=== PATIENT | female | born 1995 | race Caucasian/White ===

== ENCOUNTER 2018-10-14 05:30 | Inpatient (IN) | payer OTHER ==
[~2018-10-14] VITALS: Ht 162.6 cm; Wt 99.8 kg
[2018-10-14 06:04] VITALS: Ht 162.6 cm; Wt 99.8 kg
[2018-10-14] MEDS ORDERED: MISOPROSTOL 200 MCG TAB PR PRN ×2 (06:30→09:00)
[2018-10-14] MEDS ORDERED: CARBOPROST 250 MCG INJ IM PRN ×2 (06:30→09:00)
[2018-10-14] MEDS ORDERED: OXYTOCIN 30 UNITS/LR 500 ML IV PRN ×2 (06:30→09:00)
[2018-10-14] MEDS ORDERED: OXYTOCIN 30 UNITS/LR 500 ML IV SCH ×2 (06:30→08:47)
[2018-10-14] MEDS: LACTATED RINGER'S 1,000 ML IV SCH ×3 (06:30→23:30)
[2018-10-14] MEDS ORDERED: METHYLERGONOVINE 0.2 MG INJ IM PRN ×2 (06:30→09:00)
[2018-10-14] MEDS ORDERED: OXYTOCIN 30 UNITS/LR 500 ML BAG IV ONE (07:00)
[2018-10-14] MEDS ORDERED: CEFAZOLIN 2 GM/50 ML (PMX) 50 ML IVPB ONE (07:00)
--- NOTE | 2018-10-14 07:10 | PREAC ---
Date/Time of Note Date/Time of Note DATE: 10/14/18 TIME: 07:09 Anesthesia Eval and Record Evaluation Time Pre-Procedure Interview DATE: 10/14/18 TIME: 07:09 Age 23 Sex female NPO: 8 hrs Preoperative diagnosis Primary Planned procedure Past Medical History Past Medical History: Includes Heme: Anemia : : (3), Para: (2), Gestational age: (39), Other (Hx Chlamidia) Surgery & Anesthesia Issues No known issue Meds Anticoagulation: No Beta Nitza within 24 hr: No Reason Beta Nitza not given: Pt. not on B-Nitza Current Medications Lactated Ringer's 1,000 ml @ 125 mls/hr Q8H IV Last administered on 10/14/18at 06:30; Admin Dose 125 MLS/HR; Start 10/14/18 at 06:06 Oxytocin/Lactated Ringer's 500 ml @ 125 mls/hr POST IV ; Start 10/14/18 at 06:30 Oxytocin/Lactated Ringer's 500 ml @ 0 mls/hr ONCE PRN IV .VAGINAL BLEEDING; Start 10/14/18 at 06:30 Methylergonovine Maleate (Methergine) 0.2 mg ONCE PRN IM .VAGINAL BLEEDING; Start 10/14/18 at 06:30 Carboprost Tromethamine (Hemabate) 250 mcg ONCE PRN IM .VAGINAL BLEEDING; Start 10/14/18 at 06:30 Misoprostol (Cytotec) 1,000 mcg ONCE PRN MD .VAGINAL BLEEDING; Start 10/14/18 at 06:30 Cefazolin Sodium/ Dextrose 50 ml @ 100 mls/hr ONCE ONCE IVPB ; Start 10/14/18 at 07:00; Stop 10/14/18 at 07:29 Meds reviewed: Yes Allergies Coded Allergies: No Known Allergy (Unverified , 10/14/18) Allergies Reviewed: Yes Labs/Studies Labs Reviewed: Reviewed by anesthesiologist Result Diagram: 10/14/18 0600 Laboratory Tests 10/14/18 06:00 Blood Bank Test 10/14/18 06:00 Rh Immune Globulin Candidate NO test: Positive Studies: ECG (n/a), CXR (n/a) Pre-procedure Exam Airway: Adequate mouth opening, Adequate thyromental dist Mallampati: Mallampati II Teeth: Normal Lung: Normal Heart: Normal ASA Physical Status ASA physical status: 2 Emergency: None Planned Anesthetic Neuraxial: Spinal Planned Pain Management Sub-arachniod narcotics, Parenteral pain med Pre-operative Attestations Prior to commencing anesthesia and surgery, the patient was re-evaluated, there was verification of: *The patient's identity *The results of appropriate recent lab work and preoperative vital signs *The above evaluation not changing prior to induction *Anesthetic plan, risk benefits, alternative and complications discussed with patient/family; questions answered; patient/family understands, accepts and wishes to proceed. KANDY GUAMAN MD Oct 14, 2018 07:10
[2018-10-14] MEDS ORDERED: CITRIC ACID/NA CITRATE 30 ML CUP PO ONE (07:30)
[2018-10-14] MEDS ORDERED: ONDANSETRON 4 MG INJ IV ONE (07:30)
--- NOTE | 2018-10-14 07:37 | PREOPHP ---
DATE OF ADMISSION: 10/14/2018 HISTORY OF PRESENT ILLNESS: Ms. Roseanna Marcos is a 23-year-old 3, para 2, EDC 10/19/2018 in trauterine at 39 weeks gestational age, admitted today for elective primary . She has a history of chlamydia infection and re-exposure and was treated. However, she desires an elect christie because she desires to decrease her chances of the fetus stephanie chlamydia infectio n. She currently denies any contractions, vaginal bleeding, or discharge. Her care was a l ate entry approximately 18 weeks at [facility]. PAST MEDICAL HISTORY: None. MEDICATIONS: vitamins. PAST SURGICAL HISTORY: None. OBSTETRICAL HISTORY: x2 vaginal delivery, one of which was at approximately 27 week's gestat ional age. GYNECOLOGIC HISTORY: 11, regular 3 to 4 days. Sexually active with 1 partner. Positive for chlamyd ia and this current with recurrent exposure. The patient reports that partner is aware and will get treated for chlamydia. FAMILY HISTORY: None. REVIEW OF SYSTEMS: All within normal except history of present illness. PHYSICAL EXAMINATION: HEENT: Within normal. LUNGS: CTA bilateral. CARDIOVASCULAR: S1, S2, regular rhythm. ABDOMEN: Gravid, nontender. Negative CVA bilateral. EXTREMITIES: Negative edema. No calf tenderness. PELVIC: Vaginal exam deferred. heart tracing category 1. [place]: no contractions. IMPRESSION: A 23-year-old 3, para 2, intrauterine at 39 weeks gestational age with a history of chlamydia/re-exposure, desires elective delivery. PLAN: Consent for a primary . Risks, benefits and alternatives explained. All questions w ere answered. Dictated By: TABITHA ALVAREZ/ART Conf#: [id number] DID#: [id number]
[2018-10-14] MEDS ORDERED: PHENYLephrine (100 MCG/ML) 10ML SYG ONE (07:48)
[2018-10-14] MEDS ORDERED: morphine SULFATE/PF (10 MG/10 ML) INJ ONE (07:49)
[2018-10-14] MEDS ORDERED: OXYTOCIN 10 UNIT INJ ONE (07:49)
[2018-10-14] MEDS ORDERED: METOCLOPRAMIDE 10 MG INJ ONE (08:04)
[2018-10-14] MEDS ORDERED: DEXAMETHASONE 4 MG/ML 1 ML INJ ONE (08:04)
[2018-10-14] MEDS ORDERED: KETOROLAC 30 MG INJ ONE (08:04)
[2018-10-14] MEDS ORDERED: DIPHENHYDRAMINE 50 MG INJ IV PRN ×2 (08:30)
[2018-10-14] MEDS ORDERED: NALBUPHINE HCL (10 MG/1 ML) INJ IV PRN (08:30)
[2018-10-14] MEDS ORDERED: HYDROmorphONE 0.5 MG/0.5 ML SYG IV PRN ×2 (08:30)
[2018-10-14] MEDS ORDERED: OXYCODONE/ACETAMINOPHEN (5/325) TAB PO PRN ×3 (08:30→09:00)
[2018-10-14] MEDS ORDERED: EPHEDrine SULFATE 50 MG/5 ML SYG IV PRN (08:30)
[2018-10-14] MEDS ORDERED: HYDROCODONE/APAP (5/325) TAB PO PRN (08:30)
[2018-10-14] MEDS ORDERED: HYDROmorphONE 1 MG/5 ML IV SYRINGE IV PRN ×2 (08:30)
[2018-10-14] MEDS ORDERED: MEPERIDINE 25 MG INJ IV PRN (08:30)
[2018-10-14] MEDS ORDERED: ACETAMINOPHEN 500 MG TAB PO PRN (08:30)
[2018-10-14] MEDS ORDERED: FENTAnyl 50 MCG/ML VIAL IV PRN ×2 (08:30)
[2018-10-14] MEDS ORDERED: METOCLOPRAMIDE 10 MG INJ IV PRN (08:30)
[2018-10-14] MEDS ORDERED: NALOXONE (0.4 MG/ML) INJ IV PRN (08:30)
[2018-10-14] MEDS ORDERED: morphine 2 MG INJ IV PRN ×2 (08:30)
[2018-10-14] MEDS ORDERED: ONDANSETRON 4 MG INJ IV PRN ×2 (08:30)
--- NOTE | 2018-10-14 08:47 | OPPN ---
Date/Time of Note Date/Time of Note DATE: 10/14/18 TIME: 08:44 Operative Report Planned Procedure Procedure date Oct 14, 2018 Procedure(s) primary low transverse CD Performed by see signature line Cremator: ALEJANDRA CLAYTON M.D. 2nd Cremator none Anesthesiologist: KANDY GUAMAN MD Pre-procedure diagnosis 23-year-old 3, para 2, intrauterine at 39 weeks gestational age with a history of chlamydia/re-exposure, desires elective delivery; maternal request [id number] Anesthesia Type: [id number] spinal Post-Procedure Post-procedure diagnosis same Findings a viable male 89 weigth 3920 grams true umbilical knot normal uterus tubes and ovaries Estimated Blood Loss: 600 - 700 mls (700) Specimen(s) none Grafts/Implant(s) none Complication(s) none TABITHA CORDOVA MD Oct 14, 2018 08:47
--- NOTE | 2018-10-14 08:49 | PAC ---
Date/Time of Note Date/Time of Note DATE: 10/14/18 TIME: 08:48 Post-Anesthesia Notes Post-Anesthesia Note Last documented vital signs T: 98.0 Activity: WNL Respiratory function: WNL Cardiovascular function: WNL Mental status: Baseline Pain reasonably controlled: Yes Hydration appropriate: Yes Nausea/Vomiting absent: Yes KANDY GUAMAN MD Oct 14, 2018 08:48
[2018-10-14] MEDS ORDERED: CEFAZOLIN 2 GM/50 ML (PMX) 50 ML IVPB SCH (09:00)
[2018-10-14] MEDS ORDERED: NACL 0.9% 3 ML SYG IV SCH (09:00)
[2018-10-14] MEDS ORDERED: LANOLIN HPA 1 PKT TOP PRN (09:00)
[2018-10-14] MEDS ORDERED: HETASTARCH 6% NACL 500 ML ONE (09:07)
[2018-10-14] MEDS ORDERED: HETASTARCH 6% NACL 500 ML BAG IV* ONE (09:30)
[2018-10-14 13:45] VITALS: BP 99/58; PULSE 76; RESP 17
[2018-10-14] MEDS ORDERED: IBUPROFEN 800 MG TAB PO SCH (14:00)
[2018-10-14] MEDS: CEFAZOLIN 2 GM/50 ML (PMX) 50 ML IVPB SCH ×2 (16:13→23:30)
[2018-10-14 16:30] VITALS: BP 104/57; PULSE 88; RESP 16
[2018-10-14] MEDS: KETOROLAC 30 MG INJ IV PRN (17:13)
[2018-10-14 20:05] VITALS: BP 94/51; PULSE 71; RESP 19
[2018-10-15 03:50] VITALS: BP 96/55; PULSE 76; RESP 20
[2018-10-15] MEDS: KETOROLAC 30 MG INJ IV PRN (05:31)
[2018-10-15] MEDS: LACTATED RINGER'S 1,000 ML IV SCH ×2 (06:06→14:06)
[2018-10-15] MEDS: IBUPROFEN 800 MG TAB PO SCH ×3 (07:50→22:10)
[2018-10-15] MEDS: CEFAZOLIN 2 GM/50 ML (PMX) 50 ML IVPB SCH (08:08)
[2018-10-15 08:30] VITALS: BP 90/59; PULSE 90; RESP 19
--- NOTE | 2018-10-15 09:11 | OPR ---
DATE OF OPERATION: 10/15/2018 PREOPERATIVE DIAGNOSES: A 23-year-old 3, para 2, intrauterine at 39 weeks gestati onal age with a history of chlamydia/reexposure, desires elective delivery, maternal request . POSTOPERATIVE DIAGNOSES: A 23-year-old 3, para 2, intrauterine at 39 weeks gestati onal age with a history of chlamydia/reexposure, desires elective delivery, maternal request . PROCEDURE: Primary low transverse delivery. SURGEON: Anthony Cordova M.D. SQUARE CUTTER: Ryan De Los Santos M.D. ANESTHESIOLOGIST: Dr. Johnson. ANESTHESIA: Spinal. COMPLICATIONS: None. ESTIMATED BLOOD LOSS: 700 mL. FINDINGS: A viable male, 8, 8 and 9 respectively at 1, 5, and 10 minutes, weight 3920 grams. True umbilical cord noted. Normal uterus, tubes and ovaries. COMPLICATIONS: None. DESCRIPTION OF PROCEDURE: After explaining the risks, benefits and alternatives, the patient had con sent signed in chart, the patient was taken to the operating where spinal anesthesia was found to be adequate. She was then prepared and draped in normal sterile fashion in dorsal supine position with slight leftward tilt. A Pfannenstiel skin incision was then made with a scalpel and carried to under lying fascia. The fascia was incised in midline. The incision was extended laterally with Logan scis sors. The superior aspect of the fascial incision was grasped with curved clamps, elevated and then the underlying rectus muscles dissected off bluntly. Attention was then turned to the inferior aspec ts incision which in similar fashion was grasped, tented up with curved clamps and the rectus muscles dissected off bluntly. The peritoneal incision was extended superiorly and inferiorly with good vis ualization of bladder. The bladder blade was inserted and the vesicouterine peritoneum identified, g rasped with pickups, entered sharply with Metzenbaum scissors. This incision was extended laterally and a bladder flap created digitally. The bladder blade was then reinserted and lower segment incise d in transverse fashion with a scalpel. The uterine incision was extended laterally. The bladder bl tiffani was removed and the 's head delivered atraumatically. The nose and mouth were suctioned an d cord clamped and cut. The infant was handed off to waiting brim buster. The placenta was then re moved. The uterus exteriorized and cleared of all clots deliveries. The uterine incision was repair ed with 1-0 chromic in a running locked fashion. Second layer of same suture was used for imbricatio n and excellent hemostasis. The uterus was returned to the abdomen. The gutters were cleared of all clots. The peritoneum and rectus abdominis muscles were reapproximated with 3-0 Vicryl in interrupt ed fashion. The fascia was reapproximated with 0 Vicryl in a running fashion. The subcutaneous tiss ue was reapproximated with 2-0 plain gut in a running fashion. The skin was closed with absorbable s taples. The patient was taken to recovery in stable condition. All counts were correct. Dictated By: ANTHONY ALVAREZ/ART Conf#: [id number] DID#: [id number] CC: ANTHONY CORDOVA MD;*EndCC*
[2018-10-15] MEDS: FERROUS SULFATE (EC) 325 MG TAB PO SCH ×2 (09:23→21:14)
--- NOTE | 2018-10-15 09:57 | QN ---
Documentation Comment progress note pod 1 patient seen and evaluated no complaints vs stable afebrile ab dressing clean/dry no distention extremity no edema no calf tenderness a/ sp primary cd pod 1 stable afebrile asymptomatic anemia p/ iron supplement repeat h/h in am TABITHA CORDOVA MD Oct 15, 2018 09:57
[2018-10-15 16:10] VITALS: BP 99/55; PULSE 91; RESP 20
[2018-10-15 20:00] VITALS: BP 99/57; PULSE 92; RESP 18
[2018-10-16 03:50] VITALS: BP 104/66; PULSE 97; RESP 20
[2018-10-16] MEDS: IBUPROFEN 800 MG TAB PO SCH ×3 (05:36→22:47)
[2018-10-16 08:00] VITALS: BP 102/60; PULSE 80; RESP 20
[2018-10-16] MEDS: FERROUS SULFATE (EC) 325 MG TAB PO SCH ×2 (08:39→22:47)
[2018-10-16 16:00] VITALS: BP 116/70; PULSE 87; RESP 19
--- NOTE | 2018-10-16 18:38 | QN ---
Documentation Comment progress note pod 2 patient seen and evaluated no complaints vs stable afebrile ab c/d/i no distention extremity no edema no calf tenderness a/ sp cd with btl pod 2 stable afebrile p/ encourage ambulation discharge home tomorrow f/u office in 2 weeks TABITHA CORDOVA MD Oct 16, 2018 18:38
--- NOTE | 2018-10-16 18:59 | PD.PPDC ---
CONFIGURATION DEVELOPER Discharge Instruction Condition [id number] Patient Condition: Dttrz0d Fair Diet Napaw6Bp Diet: Ulnpm4v Resume Regular Diet Activity/Restrictions Blcko1Hx Activity: Golpq6e Normal Activity May Shower [id number] Restrictions: Uineb0q No Exercising No Lifting No Driving No Sexual Activity Nothing in the Vagina No Vardaman No Tampons, douche Follow-up Follow-up with Physician: 2, Week/Weeks Return to clinic for Awvhi0Rb SALT [employer]ER Instructions: Sgepx2d Fever greater than 101 Chills Worsening abdominal pain Excessive Vaginal Bleeding More than 2 pads per hour Unable to tolerate diet Vsvpx1Qk OB Instructions: Vnhnh6x Breast Tenderness Depression Blurried Vision Headache Ccdnp6Mq Surgical Instructions: Prdhr0c Incisional Drainage Incisional Redness TABITHA CORDOVA MD Oct 16, 2018 18:59
--- NOTE | 2018-10-16 19:46 | DS ---
DATE OF ADMISSION: 10/14/2018 DATE OF DISCHARGE: 10/16/2018 PRIMARY DIAGNOSIS: A 23-year-old 3, para 2, intrauterine at 39 weeks gestational a ge, history of chlamydia/reexposure, desires elective delivery, maternal request. PROCEDURE: Primary low transverse delivery. CONDITION ON DISCHARGE: Stable. ACTIVITY: None per vagina, no lifting x6 weeks. DIET: Regular. MEDICATIONS ON DISCHARGE 1. Motrin. 2. Iron. DISCHARGE SUMMARY: Ms. Roseanna Marcos is a 23-year-old 3, para 3, status post primary low tr ansverse delivery on 10/15/2018. She had a viable male, 8, 8 and 9 respectively at 1, 5, and 10 minutes, weight 3920 grams with true umbilical cord noted. She had an uneventful postop d ay 1 and 2. She was discharged on postop day 3. Her incision is clean, dry, and intact. She is amb ulating, tolerating diet, positive flatulence, positive bowel movement. Her hemoglobin and hematocri t is stable. She will follow up in the clinic in 2 weeks for /postop care. Dictated By: TABITHA ALVAREZ/ART Conf#: [id number] DID#: [id number] CC: TABITHA CORDOVA MD;*EndCC*
[2018-10-16 20:15] VITALS: BP 110/66; PULSE 89; RESP 18
[2018-10-17 04:15] VITALS: BP 95/57; PULSE 92; RESP 19
[2018-10-17] MEDS: IBUPROFEN 800 MG TAB PO SCH (05:37)
[2018-10-17 08:00] VITALS: BP 105/67; PULSE 75; RESP 16
[2018-10-17] MEDS: FERROUS SULFATE (EC) 325 MG TAB PO SCH (09:00)
--- NOTE | 2018-10-18 14:31 | DELSUM ---
Delivery Summary A-C Datetime Report Generated by CPN: 10/18/2018 14:31 DELIVERY PERSONNEL Smoking Tobacco Packer Hand: BarajasBeckieJennifer MATERNAL INFORMATION Delivery Anesthesia: Spinal Medications in Delivery: SEE ANES RECORDS Delivery QBL (ml): 700 Placenta Cultured: No Maternal Complications: Other Other Maternal Complications: + Chlamydia LABOR SUMMARY EDC: 10/19/2018 00:00 No. Babies in Womb: 1 Attempted: No Labor Anesthesia: Intrathecal LABOR INFORMATION Reason for Induction: Not Applicable Oxytocin: N/A Group B Beta Strep: Negative Antibiotics # of Doses: 1 Antibiotics Time of Last Dose: 10/14/2018 07:50 Steroids Given: None Reason Steroids Not Administered: Not Applicable MEMBRANES Membranes Rupture Method: Artificial Rupture of Membranes: 10/14/2018 08:11 Length of Rupture (hr): 0.00 Amniotic Fluid Color: Clear Amniotic Fluid Amount: Moderate Amniotic Fluid Odor: None STAGES OF LABOR Stage 3 hr: 0 Stage 3 min: 1 CSECTION DELIVERY Primary Indication: Other Other Primary Indication: Elective Secondary Indication: N/A CSection Urgency: Elective CSection Incidence: Primary Labor: No Labor Elective: N/A CSection Incision: Lower Uterine Transverse BABY A INFORMATION Delivery Date/Time: 10/14/2018 08:11 Method of Delivery: Born in Route : No : N/A Forceps: N/A Vacuum Extraction: N/A Shoulder Dystocia : N/A SHOULDER DYSTOCIA BABY A Delivery Date/Time: 10/14/2018 08:11 PRESENTATION/POSITION BABY A Presentation: Cephalic Cephalic Presentation: Vertex Breech Presentation: N/A PLACENTA INFORMATION BABY A Placenta Delivery Time : 10/14/2018 08:12 Placenta Method of Delivery: Manual Removal Placenta Status: Delivered SCORES BABY A Heart Rate 1 min: >100 bpm Resp Effort 1 min: Good Cry Reflex Irritability 1 min: Cough/Sneeze/Pulls Away Muscle Tone 1 min: Active Motion Color 1 min: Blue/Pale Resuscitation Effort 1 min: Tactile Stimulation SCORE 1 MIN: 8 Heart Rate 5 min: >100 bpm Resp Effort 5 min: Good Cry Reflex Irritability 5 min: Cough/Sneeze/Pulls Away Muscle Tone 5 min: Active Motion Color 5 min: Blue/Pale Resuscitation Effort 5 min: Tactile Stimulation; Oxygen SCORE 5 MIN: 8 Heart Rate 10 min: >100 bpm Resp Effort 10 min: Good Cry Reflex Irritability 10 min: Cough/Sneeze/Pulls Away Muscle Tone 10 min: Active Motion Color 10 min: Body [place], Extremit Blue Resuscitation Effort 10 min: Tactile Stimulation SCORE 10 MIN: 9 INFORMATION BABY A Gestational Age at Delivery: 39.2 Gestational Status: Full Term- 39- 40.6 Weeks Outcome : Liveborn Condition : Stable Infant Sex: Male IDENTIFICATION/MEDS BABY A ID Band Number: [id number] ID Band Location: Right Leg; Left Arm Sensor Applied: Yes Sensor Number: [id number] Sensor Location : Cord Clamp Vitamin K Given : Not Given Erythromycin Given: Not Given WEIGHT/LENGTH BABY A Infant Birthweight (gm): 3920 Weight (lb): 8 Weight (oz): 10 Infant Length (in): 21.75 Infant Length (cm): 55.25 CORD INFORMATION BABY A No. Cord Vessels: 3 Nuchal Cord : N/A True Knot: 1 Cord Blood Taken: Yes Infant Suction: Mouth; Nose ASSESSMENT BABY A Complications: None Physical Findings at Delivery: Within Normal Limits Respirations: Appears Normal Railroad Signal Technician/ALS Called : No Infant Care By: Blundell/ Ordana Transferred To: Remains with Mother
== END 2018-10-17 14:30 | disposition home or self-care (01) | DRG 788 ==
LOC: L-D 05:30 → PP1 14:05
PROVIDERS: ADMIT Obstetrics & Gynecology; ATTEND Obstetrics & Gynecology
PROC: 10D00Z1 Extraction of Products of Conception, Low, Open Approach (ICD-10-PCS; principal; 2018-10-15)
DX: O98.82 Other maternal infectious and parasitic diseases complicating childbirth (principal); Z3A.39 39 weeks gestation of pregnancy; Z37.0 Single live birth
CPT/HCPCS: 85014; 85018; 85025; 85610; 85730; 86592; 86850; 86900; 86901; 87340; 99464; J0690; J1100; J1200; J1885; J2274; J2370; J2405; J2590; J2765; J7120